=== PATIENT | female | born 1945 | race Caucasian/White ===

== ENCOUNTER 2018-06-17 05:49 | Inpatient (IN) | payer MEDICARE, OTHER ==
[2018-06-17 06:41] LABS: BASO % 0.1 % (0.0-1.0); EOS # 0.2 10^3/uL (0.0-0.50); EOS % 1.5 % (0.0-3.0); HEMATOCRIT 30.4 % (36.0-47.0); HEMOGLOBIN 9.3 g/dl (12.0-15.5); IMMATURE GRANULOCYTE % 0.8 % (0-3.0); LYMPH # 2.1 10^3/uL (1.5-4.5); LYMPH % 14.1 % (24.0-44.0); MEAN CORPUSCULAR HEMOGLOBIN 28.1 pg (27.0-33.0); MEAN CORPUSCULAR HGB CONC 30.6 g/dl (32.0-36.5); MEAN CORPUSCULAR VOLUME 91.8 fl (80.0-96.0); MONO % 6.7 % (0.0-5.0); NEUTROPHILS # 11.6 10^3/uL (1.8-7.7); NEUTROPHILS % 76.8 % (36.0-66.0); PLATELET COUNT, AUTOMATED 192 10^3/uL (150-450); RED BLOOD COUNT 3.31 10^6/uL (4.00-5.40); RED CELL DISTRIBUTION WIDTH 13.6 % (11.5-14.5); WHITE BLOOD COUNT 15.1 10^3/uL (4.0-10.0)
[2018-06-17 06:52] LABS: PROTHROMBIN TIME 13.3 SECONDS (12.1-14.4)
[2018-06-17] MEDS: NS 1,000 ML IV ×2 (07:05→10:09)
[2018-06-17] MEDS: ONDANSETRON 4MG/2ML VIAL (J2405) IV (07:15)
[2018-06-17] MEDS: PANTOPRAZOLE 40MG INJ (PROTONIX) (C9113) IV ×2 (07:15→18:52)
[2018-06-17 07:28] LABS: ALBUMIN 3.2 GM/DL (3.2-5.2); ALBUMIN/GLOBULIN RATIO 0.91 (1.00-1.93); ALKALINE PHOSPHATASE 67 U/L (45-117); ALT/SGPT 28 U/L (12-78); ANION GAP 8 MEQ/L (8-16); AST/SGOT 22 U/L (7-37); BILIRUBIN,DIRECT 0.1 MG/DL (0.0-0.2); BILIRUBIN,TOTAL 0.6 MG/DL (0.2-1.0); BLOOD UREA NITROGEN 57 MG/DL (7-18); CALCIUM LEVEL 8.5 MG/DL (8.8-10.2); CARBON DIOXIDE LEVEL 20 MEQ/L (21-32); CHLORIDE LEVEL 110 MEQ/L (98-107); CREATININE FOR GFR 1.07 MG/DL (0.55-1.30); GLOMERULAR FILTRATION RATE 53.8 (>39); GLUCOSE, FASTING 118 MG/DL (70-100); LIPASE 198 U/L (73-393); POTASSIUM SERUM 5.8 MEQ/L (3.5-5.1); SODIUM LEVEL 138 MEQ/L (136-145); TOTAL PROTEIN 6.7 GM/DL (6.4-8.2)
[2018-06-17] MEDS ORDERED: ISOVUE-370 76% 100ML VIAL (Q9967) As Ordered (08:32)
[2018-06-17] MEDS: GABAPENTIN 300 MG CAP PO ×3 (09:00→20:08)
[2018-06-17] MEDS ORDERED: ALBUTEROL SULFATE 2.5 MG/0.5 ML INH NEB SOLN INH (09:15)
[2018-06-17 10:54] LABS: IMMEDIATE SPIN CROSSMATCH 1 2
[2018-06-17] MEDS ORDERED: PROPOFOL 200 MG/20 ML VIAL As Ordered ×3 (13:17→14:03)
[2018-06-17] MEDS ORDERED: LIDOCAINE 2% INJ 100 MG/5 ML SDV (FOR ANES.) As Ordered (13:17)
[2018-06-17] MEDS ORDERED: fentaNYL 100 MCG/2 ML INJECTION (J3010) As Ordered (13:28)
[2018-06-17] MEDS ORDERED: EPINEPHrine 1MG/10ML SYRINGE 1.5IN As Ordered (13:51)
[2018-06-17] MEDS ORDERED: ONDANSETRON 4MG/2ML VIAL (J2405) As Ordered (14:08)
[2018-06-17] MEDS: FLUTICASONE HFA 220 MCG 12 GM INHALER (FLOVENT) INH ×2 (14:55→21:51)
[2018-06-17] MEDS: ALBUTEROL SULFATE 2.5 MG/0.5 ML INH NEB SOLN INH ×3 (14:56→20:00)
[2018-06-17 15:29] LABS: HEMATOCRIT 32.9 % (36.0-47.0); HEMOGLOBIN 10.5 g/dl (12.0-15.5); MEAN CORPUSCULAR HEMOGLOBIN 28.7 pg (27.0-33.0); MEAN CORPUSCULAR HGB CONC 31.9 g/dl (32.0-36.5); MEAN CORPUSCULAR VOLUME 89.9 fl (80.0-96.0); PLATELET COUNT, AUTOMATED 203 10^3/uL (150-450); RED BLOOD COUNT 3.66 10^6/uL (4.00-5.40); RED CELL DISTRIBUTION WIDTH 13.3 % (11.5-14.5); WHITE BLOOD COUNT 12.7 10^3/uL (4.0-10.0)
[2018-06-17] MEDS ORDERED: ONDANSETRON 4MG/2ML VIAL (J2405) IV (16:00)
[2018-06-17] MEDS ORDERED: traMADol 50 MG TAB PO (16:15)
[2018-06-17] MEDS: NS 0.45% 1,000 ML IV (17:13)
[2018-06-17] MEDS: ALLOPURINOL 300 MG TAB PO (20:08)
[2018-06-17] MEDS: ATORVASTATIN 20 MG TAB PO (20:08)
[2018-06-17] MEDS: MONTELUKAST 10 MG TAB PO (20:08)
[2018-06-17 21:44] LABS: HEMATOCRIT 29.8 % (36.0-47.0); HEMOGLOBIN 9.6 g/dl (12.0-15.5); MEAN CORPUSCULAR HEMOGLOBIN 28.7 pg (27.0-33.0); MEAN CORPUSCULAR HGB CONC 32.2 g/dl (32.0-36.5); PLATELET COUNT, AUTOMATED 167 10^3/uL (150-450); RED BLOOD COUNT 3.35 10^6/uL (4.00-5.40); RED CELL DISTRIBUTION WIDTH 13.8 % (11.5-14.5); WHITE BLOOD COUNT 15.5 10^3/uL (4.0-10.0)
[2018-06-18] MEDS: NS 0.45% 1,000 ML IV (01:00)
[2018-06-18 05:07] LABS: HEMATOCRIT 29.8 % (36.0-47.0); HEMOGLOBIN 9.3 g/dl (12.0-15.5); MEAN CORPUSCULAR HEMOGLOBIN 28.5 pg (27.0-33.0); MEAN CORPUSCULAR HGB CONC 31.2 g/dl (32.0-36.5); MEAN CORPUSCULAR VOLUME 91.4 fl (80.0-96.0); PLATELET COUNT, AUTOMATED 167 10^3/uL (150-450); RED BLOOD COUNT 3.26 10^6/uL (4.00-5.40); RED CELL DISTRIBUTION WIDTH 13.9 % (11.5-14.5)
[2018-06-18 05:31] LABS: ANION GAP 7 MEQ/L (8-16); BLOOD UREA NITROGEN 40 MG/DL (7-18); CALCIUM LEVEL 8.8 MG/DL (8.8-10.2); CARBON DIOXIDE LEVEL 20 MEQ/L (21-32); CHLORIDE LEVEL 114 MEQ/L (98-107); CREATININE FOR GFR 0.98 MG/DL (0.55-1.30); GLOMERULAR FILTRATION RATE 59.6 (>39); GLUCOSE, FASTING 105 MG/DL (70-100); POTASSIUM SERUM 4.8 MEQ/L (3.5-5.1); SODIUM LEVEL 141 MEQ/L (136-145)
[2018-06-18] MEDS: PANTOPRAZOLE 40MG INJ (PROTONIX) (C9113) IV ×2 (06:25→19:00)
[2018-06-18] MEDS: ALBUTEROL SULFATE 2.5 MG/0.5 ML INH NEB SOLN INH ×4 (07:49→20:00)
[2018-06-18] MEDS: FLUTICASONE HFA 220 MCG 12 GM INHALER (FLOVENT) INH ×2 (07:49→20:00)
[2018-06-18] MEDS: GABAPENTIN 300 MG CAP PO ×3 (08:41→20:29)
[2018-06-18] MEDS: ACETAMINOPHEN 500 MG TAB PO (19:48)
[2018-06-18] MEDS: MONTELUKAST 10 MG TAB PO (20:25)
[2018-06-18] MEDS: ATORVASTATIN 20 MG TAB PO (20:25)
[2018-06-18] MEDS: ALLOPURINOL 300 MG TAB PO ×3 (20:25→20:34)
[2018-06-19 06:51] LABS: HEMATOCRIT 27.7 % (36.0-47.0); HEMOGLOBIN 8.6 g/dl (12.0-15.5); MEAN CORPUSCULAR HEMOGLOBIN 28.6 pg (27.0-33.0); PLATELET COUNT, AUTOMATED 167 10^3/uL (150-450); RED BLOOD COUNT 3.01 10^6/uL (4.00-5.40); RED CELL DISTRIBUTION WIDTH 14.3 % (11.5-14.5); WHITE BLOOD COUNT 9.7 10^3/uL (4.0-10.0)
[2018-06-19 07:10] LABS: ANION GAP 7 MEQ/L (8-16); BLOOD UREA NITROGEN 30 MG/DL (7-18); CALCIUM LEVEL 8.3 MG/DL (8.8-10.2); CARBON DIOXIDE LEVEL 23 MEQ/L (21-32); CHLORIDE LEVEL 113 MEQ/L (98-107); CREATININE FOR GFR 0.92 MG/DL (0.55-1.30); GLOMERULAR FILTRATION RATE > 60.0 (>39); GLUCOSE, FASTING 115 MG/DL (70-100); POTASSIUM SERUM 4.8 MEQ/L (3.5-5.1); SODIUM LEVEL 143 MEQ/L (136-145)
[2018-06-19] MEDS: FLUTICASONE HFA 220 MCG 12 GM INHALER (FLOVENT) INH ×2 (07:42→20:00)
[2018-06-19] MEDS: ALBUTEROL SULFATE 2.5 MG/0.5 ML INH NEB SOLN INH ×4 (07:42→20:00)
[2018-06-19] MEDS: GABAPENTIN 300 MG CAP PO ×3 (09:08→20:50)
[2018-06-19] MEDS: PANTOPRAZOLE 40MG TAB (PROTONIX) PO ×2 (09:08→20:51)
[2018-06-19] MEDS: INFLUENZA VIRUS VACCINE HIGH DOSE 0.5 ML SYRINGE (90662) IM (09:11)
[2018-06-19] MEDS: ALLOPURINOL 300 MG TAB PO (20:50)
[2018-06-19] MEDS: MONTELUKAST 10 MG TAB PO (20:51)
[2018-06-19] MEDS: ATORVASTATIN 20 MG TAB PO (20:51)
[2018-06-20 06:54] LABS: HEMATOCRIT 28.2 % (36.0-47.0); HEMOGLOBIN 8.8 g/dl (12.0-15.5); MEAN CORPUSCULAR HEMOGLOBIN 28.8 pg (27.0-33.0); MEAN CORPUSCULAR HGB CONC 31.2 g/dl (32.0-36.5); MEAN CORPUSCULAR VOLUME 92.2 fl (80.0-96.0); PLATELET COUNT, AUTOMATED 179 10^3/uL (150-450); RED BLOOD COUNT 3.06 10^6/uL (4.00-5.40); RED CELL DISTRIBUTION WIDTH 14.4 % (11.5-14.5); WHITE BLOOD COUNT 10.4 10^3/uL (4.0-10.0)
[2018-06-20 07:09] LABS: ANION GAP 8 MEQ/L (8-16); BLOOD UREA NITROGEN 22 MG/DL (7-18); CALCIUM LEVEL 8.3 MG/DL (8.8-10.2); CARBON DIOXIDE LEVEL 24 MEQ/L (21-32); CHLORIDE LEVEL 109 MEQ/L (98-107); CREATININE FOR GFR 0.83 MG/DL (0.55-1.30); GLOMERULAR FILTRATION RATE > 60.0 (>39); GLUCOSE, FASTING 117 MG/DL (70-100); POTASSIUM SERUM 4.6 MEQ/L (3.5-5.1); SODIUM LEVEL 141 MEQ/L (136-145)
[2018-06-20] MEDS: ALBUTEROL SULFATE 2.5 MG/0.5 ML INH NEB SOLN INH ×4 (08:00→20:00)
[2018-06-20] MEDS: FLUTICASONE HFA 220 MCG 12 GM INHALER (FLOVENT) INH ×2 (08:00→20:00)
[2018-06-20] MEDS: PANTOPRAZOLE 40MG TAB (PROTONIX) PO ×2 (08:22→21:36)
[2018-06-20] MEDS: GABAPENTIN 300 MG CAP PO ×3 (08:22→21:36)
[2018-06-20 10:09] LABS: IMMEDIATE SPIN CROSSMATCH 1 1
[2018-06-20 15:28] LABS: HEMATOCRIT 31.9 % (36.0-47.0); HEMOGLOBIN 10.2 g/dl (12.0-15.5)
[2018-06-20] MEDS: ALLOPURINOL 300 MG TAB PO (21:00)
[2018-06-20] MEDS: ATORVASTATIN 20 MG TAB PO (21:36)
[2018-06-20] MEDS: MONTELUKAST 10 MG TAB PO (21:36)
[2018-06-21] MEDS: LISINOPRIL 20 MG TAB PO (06:29)
[2018-06-21] MEDS: ATENOLOL 50 MG TAB PO (06:35)
[2018-06-21 06:45] LABS: HEMATOCRIT 32.4 % (36.0-47.0); HEMOGLOBIN 10.3 g/dl (12.0-15.5); MEAN CORPUSCULAR HEMOGLOBIN 28.7 pg (27.0-33.0); MEAN CORPUSCULAR HGB CONC 31.8 g/dl (32.0-36.5); MEAN CORPUSCULAR VOLUME 90.3 fl (80.0-96.0); PLATELET COUNT, AUTOMATED 201 10^3/uL (150-450); RED BLOOD COUNT 3.59 10^6/uL (4.00-5.40); RED CELL DISTRIBUTION WIDTH 14.4 % (11.5-14.5); WHITE BLOOD COUNT 11.8 10^3/uL (4.0-10.0)
[2018-06-21 07:05] LABS: ANION GAP 9 MEQ/L (8-16); BLOOD UREA NITROGEN 16 MG/DL (7-18); CALCIUM LEVEL 8.8 MG/DL (8.8-10.2); CARBON DIOXIDE LEVEL 25 MEQ/L (21-32); CHLORIDE LEVEL 108 MEQ/L (98-107); CREATININE FOR GFR 0.85 MG/DL (0.55-1.30); GLOMERULAR FILTRATION RATE > 60.0 (>39); GLUCOSE, FASTING 112 MG/DL (70-100); POTASSIUM SERUM 4.3 MEQ/L (3.5-5.1); SODIUM LEVEL 142 MEQ/L (136-145)
[2018-06-21] MEDS: ALBUTEROL SULFATE 2.5 MG/0.5 ML INH NEB SOLN INH ×2 (07:31→11:16)
[2018-06-21] MEDS: FLUTICASONE HFA 220 MCG 12 GM INHALER (FLOVENT) INH (07:32)
[2018-06-21] MEDS: PANTOPRAZOLE 40MG TAB (PROTONIX) PO (08:33)
[2018-06-21] MEDS: GABAPENTIN 300 MG CAP PO (08:33)
== END 2018-06-21 10:50 | disposition home or self-care (01) | DRG 378 ==
LOC: M MS5PR 06-18 14:27 → M ED 05:49 → M ED INP 09:15 → M ICU 15:40
PROC: 0W3P8ZZ Control Bleeding in Gastrointestinal Tract, Via Natural or Artificial Opening Endoscopic (ICD-10-PCS; principal; 2018-06-17 12:42)
PROC: 30233N1 Transfusion of Nonautologous Red Blood Cells into Peripheral Vein, Percutaneous Approach (ICD-10-PCS; 2018-06-17 13:20)
DX: K26.4 Chronic or unspecified duodenal ulcer with hemorrhage (principal); D62 Acute posthemorrhagic anemia; Z68.41 Body mass index [BMI] 40.0-44.9, adult; I11.9 Hypertensive heart disease without heart failure; E66.9 Obesity, unspecified; Z79.899 Other long term (current) drug therapy; Z88.6 Allergy status to analgesic agent; M10.9 Gout, unspecified; E78.5 Hyperlipidemia, unspecified; I73.9 Peripheral vascular disease, unspecified; J45.909 Unspecified asthma, uncomplicated; F32.9 Major depressive disorder, single episode, unspecified; M79.7 Fibromyalgia; Z87.891 Personal history of nicotine dependence

== ENCOUNTER 2018-12-05 18:42 | Inpatient (IN) | payer MEDICARE, OTHER ==
[~2018-12-05] VITALS: Ht 167.6 cm; Wt 116.6 kg
[~2018-12-05 18:42] MED LIST: ALLO10TA PO; ATEN50TA2 PO; ATOR40TA75 PO; COQ1200C3 PO; FLUT22IN INH; FURO20TA2 PO; GABA-843 PO; LISI-538 PO; MAGN1CAP PO; MELO15TA28 PO; OMEG10002 PO; PROAAER10 INH; PROT1TAB2 PO; PROZ20CA11 PO; SING10TA32 PO; ZYLO300T6 PO
[2018-12-05] MEDS ORDERED: FUROSEMIDE 100 MG/10 ML VIAL (J1940) IV ONE (19:30)
[2018-12-05] MEDS ORDERED: dexameTHASONE 20 MG/5 ML VIAL (J1100) IV ONE (19:30)
[2018-12-05] MEDS ORDERED: IPRATROPIUM 0.5MG/ALBUTEROL 2.5MG INH SOL UD 3ML (DUONEB)(J7620) NEB ONE (19:30)
[2018-12-05 19:48] LABS: BASO % 0.2 % (0.0-1.0); EOS # 0.4 10^3/uL (0.0-0.50); EOS % 2.7 % (0.0-3.0); HEMATOCRIT 42.1 % (36.0-47.0); HEMOGLOBIN 12.7 g/dl (12.0-15.5); LYMPH # 2.8 10^3/uL (1.5-4.5); LYMPH % 17.2 % (24.0-44.0); MEAN CORPUSCULAR HEMOGLOBIN 26.2 pg (27.0-33.0); MEAN CORPUSCULAR HGB CONC 30.2 g/dl (32.0-36.5); MEAN CORPUSCULAR VOLUME 86.8 fl (80.0-96.0); MONO # 1.1 10^3/uL (0.0-0.8); MONO % 6.6 % (0.0-5.0); NEUTROPHILS # 11.9 10^3/uL (1.8-7.7); NEUTROPHILS % 72.6 % (36.0-66.0); PLATELET COUNT, AUTOMATED 266 10^3/uL (150-450); RED BLOOD COUNT 4.85 10^6/uL (4.00-5.40); WHITE BLOOD COUNT 16.5 10^3/uL (4.0-10.0)
[2018-12-05 20:02] LABS: INR 0.98; PROTHROMBIN TIME 13.1 SECONDS (12.1-14.4)
[2018-12-05 20:03] LABS: PARTIAL THROMBOPLASTIN TIME 40.4 SECONDS (25.4-37.6)
--- NOTE | 2018-12-05 20:13 | REP ---
Clinical: Chest pain. Technique: Portable AP upright view. Comparison: 06/17/2018. Findings: Mediastinum and cardiac silhouette are relatively stable although mild cardiomegaly cannot be excluded. Gibbs demonstrate chronic-appearing interstitial changes. No focal consolidation, effusion, or pneumothorax. Skeletal structures intact. Impression: Mild cardiomegaly and chronic appearing changes. No focal consolidation. Electronically Signed by Dean Wyman MD 12/05/2018 08:04 P
--- NOTE | 2018-12-05 20:16 | ECGEPIP ---
Stationary ECG Study [facility] - ED Test Date: 2018-12-05 Pat Name: CORNELIUS MASON Department: Room: - Gender: F Coding Director: ct : 1945 Requested By: Mariella Fishman Order Number: [id number] Reading MD: Mariella Fishman Measurements Intervals [place] Rate: 74 P: 51 OR: 165 QRS: 55 QRSD: 89 T: 15 QT: 400 QTc: 444 Interpretive Statements SINUS RHYTHM NSTTW ABNORMALITY SIMILAR 06/17/18 Electronically Signed On 12-05-2018 20:16:10 EST by Mariella Fishman
[2018-12-05 20:24] LABS: ALBUMIN 3.3 GM/DL (3.2-5.2); ALT/SGPT 29 U/L (12-78); BILIRUBIN,DIRECT 0.1 MG/DL (0.0-0.2); BILIRUBIN,TOTAL 0.5 MG/DL (0.2-1.0); BLOOD UREA NITROGEN 28 MG/DL (7-18); CARBON DIOXIDE LEVEL 22 MEQ/L (21-32); CHLORIDE LEVEL 108 MEQ/L (98-107); CPK CREATINE PHOSPHOKINASE 54 U/L (26-192); CREATININE FOR GFR 0.95 MG/DL (0.55-1.30); FREE T4 1.45 NG/DL (0.76-1.46); GLOMERULAR FILTRATION RATE > 60.0 (>39); GLUCOSE, FASTING 137 MG/DL (70-100); LIPASE 275 U/L (73-393); MB/CK RELATIVE INDEX 3.15 (< OR =4); NT-PRO BNP 1188 PG/ML (<125); POTASSIUM SERUM 4.4 MEQ/L (3.5-5.1); SODIUM LEVEL 140 MEQ/L (136-145); TOTAL PROTEIN 7.2 GM/DL (6.4-8.2); TROPONIN I < 0.02 NG/ML (< 0.10)
[2018-12-05] MEDS: OMEGA-3 1000MG CAPSULE PO SCH (21:00)
[2018-12-05] MEDS: CO-ENZYME Q10 50 MG CAP PO SCH (21:00)
[2018-12-05] MEDS: PANTOPRAZOLE 20 MG TAB PO SCH (21:00)
[2018-12-05 21:36] LABS: ABG BASE EXCESS -4.4 (-2.0-2.0); ABG HCO3 19.2 MEQ/L (22.0-26.0); ABG O2 SATURATION 96.5 % (95.0-99.0); ABG PARTIAL PRESSURE CO2 31.2 mmHg (35.0-45.0); ABG PARTIAL PRESSURE O2 87.9 mmHg (75.0-100.0); ABG STANDARD HCO3 20.9 MEQ/L (22.0-26.0); ABG TOTAL CO2 20.2 MEQ/L (23.0-31.0); ABG pH (ARTERIAL) 7.407 UNITS (7.350-7.450)
[2018-12-05] MEDS ORDERED: ISOVUE-370 76% 100ML VIAL (Q9967) As Ordered ONE (22:15)
--- NOTE | 2018-12-05 22:57 | REPVR ---
EXAM: CT Angiography Chest With Contrast EXAM DATE/TIME: 12/05/2018 10:22 PM CLINICAL HISTORY: 73 years old, female; Pain; Chest pain; Additional info: Dysp TECHNIQUE: Axial computed tomographic angiography images of the chest with intravenous contrast using CT angiography protocol. All CT scans at this facility use at least one of these dose optimization techniques: automated exposure control; mA and/or kV adjustment per patient size (includes targeted exams where dose is matched to clinical indication); or iterative reconstruction. Coronal and sagittal reformatted images were created and reviewed. MIP reconstructed images were created and reviewed. CONTRAST: Contrast Material: 75 ml of ISO 370; Contrast Route: IV COMPARISON: CR PORTABLE CHEST X-RAY 12/05/2018 7:45 PM FINDINGS: Pulmonary arteries: There is opacification of the pulmonary arteries with no evidence of pulmonary embolus. Aorta: There is opacification of the aorta which appears intact. Lungs: There is interstitial density throughout the lungs some of which may be congestive failure and pulmonary edema. There may also be interstitial pneumonic infiltrates. Acute or chronic interstitial lung disease is a consideration as well. Pleural space: No evidence of pneumothorax and no pleural effusion. Heart: There is moderate cardiomegaly. There is no pericardial effusion. There is a focal 3 CM rounded area of thickening of the myocardium posterior left ventricle and recommend correlation with an echo to exclude any possibility of pathology. Lymph nodes: There are 2 lymph nodes along the right side of the trachea measuring 2 CM by 1 CM each. There is a 3 CM by 2 CM conglomerates of lymph nodes in the subcarinal location. Bones/joints: Unremarkable. No acute fracture. Soft tissues: Unremarkable. IMPRESSION: 1. 3 cm focal oval area of thickening posterior aspect of the left ventricular myocardium. I would recommend correlation with an echo to evaluate for pathology. 2. Moderate cardiomegaly. 3. No evidence of pulmonary embolus. 4. Moderate congestive failure and interstitial edema. 5. Possible interstitial infiltrate as well or interstitial lung disease. Electronically signed by: Dimitri Schmidt On 12/05/2018 22:56:58 PM
[2018-12-05] MEDS ORDERED: PROT20TA11 PO (23:01)
[2018-12-05] MEDS ORDERED: COQ1200C3 PO (23:01)
[2018-12-05] MEDS ORDERED: FLUO20CA8 PO (23:03)
[2018-12-05] MEDS ORDERED: NORC1TAB7 PO (23:06)
[2018-12-05] MEDS ORDERED: ALBU83IN INH (23:06)
[2018-12-05] MEDS ORDERED: GLUCAGON FOR INJ 1 MG VIAL (J1610) SC PRN (23:15)
[2018-12-05] MEDS ORDERED: ALLOPURINOL 300 MG TAB PO PRN (23:15)
[2018-12-05] MEDS ORDERED: GLUCOSE 4 GM CHEW TABLET PO PRN (23:15)
[2018-12-05] MEDS ORDERED: DEXTROSE 50% 50 ML SYRINGE IV PRN (23:15)
[2018-12-05] MEDS ORDERED: ALBUTEROL SULFATE 2.5 MG/0.5 ML INH NEB SOLN NEB PRN (23:15)
[2018-12-05] MEDS ORDERED: CALCIUM GLUCONATE 1,000 MG in D5W MINI-BAG PLUS 100 ML IV ONE (23:30)
[2018-12-05] MEDS ORDERED: NORCO, ANEXSIA 5/325MG TABLET (HYDROcodone/ACETAMINOPHEN) PO PRN (23:30)
[2018-12-06] VITALS (18 sets, daily range): BP systolic 122–151; BP diastolic 60–72; O2SAT 91–96
[2018-12-06] MEDS: ATORVASTATIN 20 MG TAB PO SCH ×2 (00:45→20:12)
[2018-12-06] MEDS: LISINOPRIL 20 MG TAB PO SCH ×3 (00:46→20:12)
[2018-12-06] MEDS: GABAPENTIN 300 MG CAP PO SCH ×3 (00:46→20:13)
[2018-12-06] MEDS: MONTELUKAST 10 MG TAB PO SCH ×2 (00:47→20:13)
[2018-12-06] MEDS: FLUoxetine 20 MG CAP PO SCH ×3 (00:47→20:12)
[2018-12-06] MEDS: ATENOLOL 50 MG TAB PO SCH ×3 (00:47→20:13)
[2018-12-06] MEDS: AZITHROMYCIN INJ 500 MG, VIAL MATE ADAPTER 1 EACH in D5W 250 ML IV SCH (03:10)
[2018-12-06] MEDS: methylPREDNISolone INJ 125 MG/2 ML VIAL (J2930) IV SCH ×2 (06:02→15:27)
[2018-12-06] MEDS: HEPARIN SOD (PORCINE) 5000 UNITS/ML VIAL SC SCH ×3 (06:02→22:10)
[2018-12-06] MEDS: cefTRIAXone SOD 1 GM in D5W MINI-BAG PLUS 50 ML IV SCH (06:03)
[2018-12-06 07:36] LABS: HEMATOCRIT 42.4 % (36.0-47.0); HEMOGLOBIN 13.1 g/dl (12.0-15.5); MEAN CORPUSCULAR HEMOGLOBIN 26.5 pg (27.0-33.0); MEAN CORPUSCULAR HGB CONC 30.9 g/dl (32.0-36.5); MEAN CORPUSCULAR VOLUME 85.7 fl (80.0-96.0); PLATELET COUNT, AUTOMATED 283 10^3/uL (150-450); RED BLOOD COUNT 4.95 10^6/uL (4.00-5.40); WHITE BLOOD COUNT 19.2 10^3/uL (4.0-10.0)
[2018-12-06 07:49] LABS: BLOOD UREA NITROGEN 30 MG/DL (7-18); CALCIUM LEVEL 9.1 MG/DL (8.8-10.2); CARBON DIOXIDE LEVEL 21 MEQ/L (21-32); CHLORIDE LEVEL 103 MEQ/L (98-107); CREATININE FOR GFR 1.19 MG/DL (0.55-1.30); GLOMERULAR FILTRATION RATE 47.5 (>39); GLUCOSE, FASTING 240 MG/DL (70-100); POTASSIUM SERUM 4.8 MEQ/L (3.5-5.1); SODIUM LEVEL 135 MEQ/L (136-145); TROPONIN I < 0.02 NG/ML (< 0.10)
[2018-12-06] MEDS: IPRATROPIUM 0.5MG/ALBUTEROL 2.5MG INH SOL UD 3ML (DUONEB)(J7620) NEB SCH ×4 (08:00→20:24)
[2018-12-06] MEDS: FLUTICASONE HFA 220 MCG 12 GM INHALER (FLOVENT) INH SCH ×3 (08:07→20:24)
[2018-12-06] MEDS: HumaLOG INSULIN (NovoLOG) PER UNIT SC SCH ×4 (10:01→16:50)
[2018-12-06] MEDS: FUROSEMIDE 40 MG/4 ML VIAL (J1940) IV SCH ×2 (10:01→18:35)
[2018-12-06] MEDS: CO-ENZYME Q10 50 MG CAP PO SCH ×2 (10:02→20:11)
[2018-12-06] MEDS: OMEGA-3 1000MG CAPSULE PO SCH ×2 (10:02→20:12)
[2018-12-06] MEDS: PANTOPRAZOLE 20 MG TAB PO SCH ×2 (10:05→20:14)
--- NOTE | 2018-12-06 11:41 | HPE ---
DATE OF ADMISSION: 12/05/2018 CHIEF COMPLAINT: Cough, shortness of breath over the past several weeks. HISTORY OF PRESENT ILLNESS: The patient is a 73-year-old female. She has a significant past medical history of gastrointestinal (GI) bleed secondary to peptic ulcer disease, gout, hyperlipidemia, hypertension, asthma, depression, questionable coronary disease (CAD) with a normal stress test in the past. She was suppose to see Dr. Cabrales for cardiac catheter but was not able to do so due to insurance issues. She has inferior ischemic on a nuclear stress test. It is unclear if this was breast tissue, an actual area of reversible ischemia. She also has diastolic congestive heart failure (CHF). She presents to the emergency room with worsening dyspnea on exertion for the past several weeks, decreased exercise tolerance. She is only able to walk a few feet now before she is short of breath, some chest burning. Cough is productive of sputum. She denies fevers or chills. Denies abdominal pain, constipation, diarrhea or urinary symptoms. PAST MEDICAL HISTORY: See history of present illness. PAST SURGICAL HISTORY: Carpal tunnel syndrome surgery. Hysterectomy. She has had trigger finger release. She has had a tummy tuck. Hemorrhoidectomy. Tonsillectomy. Right foot surgery. Left knee surgery. HOME MEDICATIONS: - albuterol - Lasix - allopurinol - atenolol - Lipitor - Coenzyme Q - Prozac - fluticasone - gabapentin - lisinopril - Singulair - Protonix ALLERGIES: IBUPROFEN, SULFA ANTIBIOTICS. SOCIAL HISTORY: Former smoker. Denies alcohol or elicit drug use. FAMILY HISTORY: Hypertension and heart disease. REVIEW OF SYSTEMS: 12 point review of systems was completed all of which were negative except those listed in history of present illness. VITAL SIGNS ON ADMISSION: Temperature 98.7, pulse 74, respirations 28, sating at 84% on room air, blood pressure 192/79. PHYSICAL EXAMINATION: General: She is well nourished, in no apparent distress. Head: Normocephalic, atraumatic. Eyes: Extraocular movements are intact. Pupils equal, round, and reactive to light. Neck is supple. No jugular venous pulse. Lungs: She has bibasilar crackles, mild wheezing. Cardiovascular: Regular rate and rhythm. Normal S1, S2. No murmurs, gallops or rubs. Abdomen is soft, nontender, nondistended, positive bowel sounds. No rebound or guarding. Extremities: Trace pitting edema. No calf tenderness. Skin: Intact. No rashes, lesions or breakdown. Neurological exam: Alert and oriented times three. No focal deficit appreciated on exam. LABS AND IMAGING COMPLETED IN THE EMERGENCY ROOM: White count 16.5, hemoglobin and hematocrit 12/42, platelets of 266. Coags within normal limits. Blood gas 7.4, 31, 87, 20, 96. Chemistry shows a BUN and creatinine of 28/0.9, lactate within normal limits. Troponin negative. BNP 1188. IMAGING: CT angio of the chest shows 3 cm focal ovoid area of thickening posterior aspect of the left ventricle and myocardium. Moderate cardiomegaly. No evidence of pulmonary embolus. Moderate congestive heart failure and interstitial edema. Possibly interstitial infiltrate as well as/or interstitial lung disease. ASSESSMENT AND PLAN: Acute respiratory failure with hypoxia, multifactorial, possible asthma exacerbation secondary to underlying pneumonia as well as congestive heart failure (CHF) exacerbation. For asthma exacerbation, the patient does not know her baseline peak flow. Once daily peak flow. Solu-Medrol 40 every 8 hours. Insulin sliding scale while on Solu-Medrol with a history of prediabetes. She has underlying pneumonia so we will do Rocephin and Zithromax. Sputum culture, Legionella, urine pneumococcal antigen. Oxygen as needed to maintain oxygen saturation greater than 94%. For possible congestive heart failure exacerbation, strict input and output, daily weights, elevate the head of the bed. Lasix 40 twice daily. Rule out ACS with serial troponins, serial EKGs. Will get an echo. Will also evaluate her left ventricular opacity. Unclear this may also be artifact. For the rest of her chronic medical conditions, hyperlipidemia, continue statin. History of peptic ulcer disease. Continue Protonix. Hypertension, continue lisinopril. Neuropathy, continue gabapentin. Mood disorder, continue Prozac. Allopurinol, continue with that. For fibromyalgia, continue with [place]. Supportive deep venous thrombosis (DVT) prophylaxis. Heparin subcutaneous. GI prophylaxis on Prilosec. Diet: Cardiac. Fluid restriction.
--- NOTE | 2018-12-06 14:34 | ECGEPIP ---
Stationary ECG Study [facility] Test Date: 2018-12-06 Pat Name: CORNELIUS MASON Department: Room: [place] [address] Gender: F Finisher Brush: BAKARI : 1945 Requested By: ZACH THURSDAY Order Number: [id number] Reading MD: Dany Jacobsen Measurements Intervals [place] Rate: 51 P: 4 ME: 171 QRS: 37 QRSD: 96 T: -2 QT: 483 QTc: 449 Interpretive Statements SINUS BRADYCARDIA Rate decreased and T wave abnormality increased when compared to tracing done Electronically Signed On 12-06-2018 14:34:05 EST by Dany Jacobsen
--- NOTE | 2018-12-06 17:37 | IPNPDOC ---
Text Note Date of Service The patient was seen on 12/06/18. NOTE Subjective: Patient is a 73-year-old female with a PMHx of CAD (Hx of Inferior ischemia on nuclear stress test), Diastolic CHF, HTN, DLP, Asthma, GI bleed 2/2 PUD, Gout, Depression who presented to the ER with complaints of shortness of breath over the last several weeks. Patient also noted associated cough. Of note, patient has stopped using diuretics are the past 5 days because she has reported that it makes her feel weaker. Patient was seen and examined at the bedside. Currently patient has noted that her breathing is improved. Denies any chest pain or palpitations. Denies any nausea, vomiting, abdominal pain, constipation, diarrhea or discomfort with urination. Objective: Vitals (See below) General: Lying in bed, no acute distress, comfortable, AAOx3 HEENT: NC, AT CVS: RRR, +S1S2 Lungs: Fair air entry b/l, crackles on lung bases without any evidence of wheezing or rhonchi Abdomen: Soft, ND, NT Extremities: - Edema, - Calf tenderness Assessment and plan: Acute hypoxic respiratory failure - possibly 2/2 fluid overload, possibly 2/2 community acquired pneumonia, possibly 2/2 Asthma - Presented to the ER with complaints of shortness of breath associated with cough - Physical reveals bilateral crackles on lung bases - Remains afebrile and hemodynamically stable - Leukocytosis; likely confounded by corticosteroid use - c/w Furosemide 40 IV BID - c/w Solumedrol; will taper dose - c/w Ceftriaxone and Azithromycin (Day #2) Hx of Pre-DM - Patient has re refused insulin; and is indicated that it will "kill her" CAD - Hx of Inferior ischemia on nuclear stress test - Currently patient has no complaints of chest pain or palpitations - EKG 3/3: Sinus bradycardia with T-wave abnormalities noted - Troponin x3 negative - Will have outpatient follow-up with Dr. Aguiar HTN - BP well controlled - c/w Lisinopril, Atenolol, DLP - c/w [place] 3 fatty acids, Coenzyme Q10, Atorvastatin Asthma - see above - c/w Montelukast - c/w inhaled therapy as ordered GI bleed 2/2 PUD - Hg appears to be higher than baseline - Will continue to monitor - c/w Protonix Gout - c/w Allopurinol Depression - c/w Fluoxetine Neuropathy - c/w Gabapentin Patient education - Patient is of poor understanding of her medical conditions - Reiterated to patient the need for medications and compliance - Will reattempt again tomorrow DVT prophylaxis - c/w Heparin VS,Fishbone, I+O VS, Fishbone, I+O Laboratory Tests 12/05/18 19:33 Red Blood Count 4.85, Mean Corpuscular Volume 86.8, Mean Corpuscular Hemoglobin 26.2 L, Mean Corpuscular Hemoglobin Concent 30.2 L, Red Cell Distribution Width 15.2 H, Neutrophils (%) (Auto) 72.6 H, Lymphocytes (%) (Auto) 17.2 L, Monocytes (%) (Auto) 6.6 H, Eosinophils (%) (Auto) 2.7, Basophils (%) (Auto) 0.2, Neutro phils # (Auto) 11.9 H, Lymphocytes # (Auto) 2.8, Monocytes # (Auto) 1.1 H, Eosinophils # (Auto) 0.4, Basophils # (Auto) 0.0 12/06/18 07:20 Red Blood Count 4.95, Mean Corpuscular Volume 85.7, Mean Corpuscular Hemoglobin 26.5 L, Mean Corpuscular Hemoglobin Concent 30.9 L, Red Cell Distribution Width 15.1 H, Calcium Level 9.1 Vital Signs Date Time Temp Pulse Resp B/P (MAP) Pulse Ox O2 Delivery O2 Flow Rate FiO2 12/06/18 12:00 98.2 64 20 133/60 (84) 95 2.0 12/05/18 20:09 Nasal Cannula I&O- Last 24 Hours up to 6 AM 12/06/18 05:59 Intake Total 360 ml Output Total 1500 ml Balance -1140 ml TEE SCHMITZ MD Dec 06, 2018 17:37
[2018-12-07] VITALS (9 sets, daily range): BP systolic 128–148; BP diastolic 60–75; O2SAT 95–97
[2018-12-07] MEDS: AZITHROMYCIN INJ 500 MG, VIAL MATE ADAPTER 1 EACH in D5W 250 ML IV SCH ×3
[2018-12-07] MEDS: IPRATROPIUM 0.5MG/ALBUTEROL 2.5MG INH SOL UD 3ML (DUONEB)(J7620) NEB SCH ×4 (00:37→11:24)
[2018-12-07] MEDS: cefTRIAXone SOD 1 GM in D5W MINI-BAG PLUS 50 ML IV SCH (01:00)
[2018-12-07] MEDS ORDERED: methylPREDNISolone INJ 40 MG/1 ML VIAL (J2920) IV SCH (02:00)
[2018-12-07 04:56] LABS: HEMATOCRIT 38.7 % (36.0-47.0); HEMOGLOBIN 12.2 g/dl (12.0-15.5); MEAN CORPUSCULAR HEMOGLOBIN 26.4 pg (27.0-33.0); MEAN CORPUSCULAR HGB CONC 31.5 g/dl (32.0-36.5); MEAN CORPUSCULAR VOLUME 83.8 fl (80.0-96.0); PLATELET COUNT, AUTOMATED 297 10^3/uL (150-450); RED BLOOD COUNT 4.62 10^6/uL (4.00-5.40)
[2018-12-07 05:14] LABS: CALCIUM LEVEL 8.2 MG/DL (8.8-10.2); CREATININE FOR GFR 1.44 MG/DL (0.55-1.30); GLOMERULAR FILTRATION RATE 38.1 (>39); POTASSIUM SERUM 4.4 MEQ/L (3.5-5.1)
[2018-12-07 05:17] LABS: WHITE BLOOD COUNT 31.6 10^3/uL (4.0-10.0)
[2018-12-07] MEDS: HEPARIN SOD (PORCINE) 5000 UNITS/ML VIAL SC SCH (06:30)
[2018-12-07] MEDS: FLUTICASONE HFA 220 MCG 12 GM INHALER (FLOVENT) INH SCH (07:29)
[2018-12-07 08:08] LABS: BASO # 0.1 10^3/uL (0.0-0.2); BASO % 0.2 % (0.0-1.0); LYMPH # 2.4 10^3/uL (1.5-4.5); LYMPH % 7.4 % (24.0-44.0); MONO # 1.5 10^3/uL (0.0-0.8); MONO % 4.7 % (0.0-5.0); NEUTROPHILS % 86.3 % (36.0-66.0)
[2018-12-07 08:31] LABS: NEUTROPHILS # 27.7 10^3/uL (1.8-7.7)
[2018-12-07] MEDS: PANTOPRAZOLE 20 MG TAB PO SCH ×2 (09:00→09:28)
[2018-12-07] MEDS ORDERED: predniSONE 20 MG TAB PO SCH (09:00)
[2018-12-07] MEDS: FLUoxetine 20 MG CAP PO SCH (09:27)
[2018-12-07] MEDS: GABAPENTIN 300 MG CAP PO SCH (09:27)
[2018-12-07] MEDS: ATENOLOL 50 MG TAB PO SCH (09:27)
[2018-12-07] MEDS: OMEGA-3 1000MG CAPSULE PO SCH (09:27)
[2018-12-07] MEDS: CO-ENZYME Q10 50 MG CAP PO SCH (09:27)
[2018-12-07] MEDS: LISINOPRIL 20 MG TAB PO SCH (09:28)
[2018-12-07] MEDS ORDERED: AZIT-12 PO (10:28)
[2018-12-07] MEDS ORDERED: CEFD300CAP PO (10:28)
[2018-12-07] MEDS ORDERED: PRED10TA2 PO (10:28)
[2018-12-07] MEDS ORDERED: AZITHROMYCIN 250 MG TAB PO SCH (12:00)
--- NOTE | 2018-12-07 13:04 | DS.PDOC ---
Discharge Summary General Date of Admission Dec 05, 2018 at 22:57 Date of Discharge 12/07/2018 Discharge Summary PROCEDURES PERFORMED DURING STAY: [None]. ADMITTING DIAGNOSES / DISCHARGE DIAGNOSES: Acute hypoxic respiratory failure - possibly 2/2 fluid overload, possibly 2/2 community acquired pneumonia, possibly 2/2 Asthma Profound leukocytosis - likely 2/2 reactive etiology - likely 2/2 corticosteroids; less likely 2/2 infectious etiology Elevation of Cr - likely 2/2 pre-renal etiology - likely 2/2 diuresis Hx of Pre-DM CAD HTN DLP Asthma GI bleed 2/2 PUD Gout Depression Neuropathy Hx of Non-compliance / Poor medical understanding DVT prophylaxis COMPLICATIONS/CHIEF COMPLAINT: Shortness of breath HISTORY OF PRESENT ILLNESS: Patient is a 73-year-old female with a PMHx of CAD (Hx of Inferior ischemia on nuclear stress test), Diastolic CHF, HTN, DLP, Asthma, GI bleed 2/2 PUD, Gout, Depression who presented to the ER with complaints of shortness of breath over the last several weeks. Patient also noted associated cough. Of note, patient has stopped using diuretics are the past 5 days because she has reported that it makes her feel weaker. HOSPITAL COURSE: Acute hypoxic respiratory failure - possibly 2/2 fluid overload, possibly 2/2 community acquired pneumonia, possibly 2/2 Asthma - Patient is indicated that her breathing is doing much better - Physical does not reveal any crackles at bases any further - Remains afebrile and hemodynamically stable - Increased leukocytosis; likely confounded by corticosteroid use - s/p Furosemide 40 IV BID - Will Start Prednisone; Will DC Solumedrol - Will Start Cefdinir and Azithromycin; Will DC Ceftriaxone and Azithromycin (Antibiotic day #3); antibiotics have been sent to her pharmacy - Patient has not yet cleared physical therapy but is adamant that she will be going home - Patient will be leaving AGAINST MEDICAL ADVICE; patient is aware of the risks including worsening of her medical condition disability and/or - The benefits of staying include monitoring of her medical condition and continuation of physical therapy to ensure stability Profound leukocytosis - likely 2/2 reactive etiology - likely 2/2 cortico steroids; less likely 2/2 infectious etiology - Review systems is negative for any additional source of infection - Remains hemodynamically stable and afebrile - Will continue with antibiotics as stated above Elevation of Cr - likely 2/2 pre-renal etiology - likely 2/2 diuresis - Continues to make urine - Will discontinue IV diuretics Hx of Pre-DM - Has been on ISS given concurrent use of corticosteroids - Patient has refused insulin; and is indicated that it will "kill her and that's the reason her niece lost her leg" - Advised patient that it is only while she is on corticosteroids; she noted that "her body would let her know if she needed insulin' CAD - Hx of Inferior ischemia on nuclear stress test - Currently patient has no complaints of chest pain or palpitations - EKG 12/05: Sinus bradycardia with T-wave abnormalities noted - Troponin x3 negative - Will have outpatient follow-up with Dr. Cabrales HTN - BP well controlled - c/w Lisinopril, Atenolol, DLP - c/w [place] 3 fatty acids, Coenzyme Q10, Atorvastatin Asthma - see above - c/w Montelukast - c/w inhaled therapy as ordered GI bleed 2/2 PUD - Hg appears to be higher than baseline - Will continue to monitor - c/w Protonix Gout - c/w Allopurinol Depression - c/w Fluoxetine Neuropathy - c/w Gabapentin Patient education - Patient is of poor understanding of her medical conditions - Reiterated to patient the need for medications and compliance - Currently patient want to educate staff about medications - She has been advised to follow up with her PCP and Dr. Cabrales DVT prophylaxis - c/w Heparin DISCHARGE MEDICATIONS: Please see below. ALLERGIES: Please see below. PHYSICAL EXAMINATION ON DISCHARGE: Vitals (See below) General: Lying in bed, no acute distress, comfortable, AAOx3 HEENT: NC, AT CVS: RRR, +S1S2 Lungs: Fair air entry b/l, crackles on lung bases without any evidence of wheezing or rhonchi Abdomen: Soft, ND, NT Extremities: - Edema, - Calf tenderness LABORATORY DATA: Please see below. ACTIVITY: [As tolerated]. DISCHARGE PLAN: Follow-up with Dr. Garíca and Dr. Cabrales within 7 days Remain compliant with treatment plan and medications Return to the ER if you experience any problems DISPOSITION: Home Against Medical Advice DISCHARGE CONDITION: [Stable]. TIME SPENT ON DISCHARGE: Greater than [35] minutes. Vital Signs/I&Os Vital Signs Date Time Temp Pulse Resp B/P (MAP) Pulse Ox O2 Delivery O2 Flow Rate FiO2 12/07/18 09:27 65 128/60 12/07/18 08:00 97.0 24 94 2.0 12/07/18 06:00 Nasal Cannula I&O- Last 24 Hours up to 6 AM 12/07/18 06:00 Intake Total 2585 ml Output Total 1080 ml Balance 1505 ml Laboratory Data Labs 24H Laboratory Tests 2 12/06/18 16:49: Bedside Glucose (Misc Panel) 169H 12/07/18 04:42: Immature Granulocyte % (Auto) 1.4, White Blood Count 31.6*H, Red Blood Count 4.62, Hemoglobin 12.2, Hematocrit 38.7, Mean Corpuscular Volume 83.8, Mean Corpuscular Hemoglobin 26.4L, Mean Corpuscular Hemoglobin Concent 31.5L, Red Cell Distribution Width 14.9H, Platelet Count 297, Neutrophils (%) (Auto) 86.3H, Lymphocytes (%) (Auto) 7.4L, Monocytes (%) (Auto) 4.7, Eosinophils (%) (Auto) 0.0, Basophils (%) (Auto) 0.2, Neutrophils # (Auto) 27.7H, Lymphocytes # (Auto) 2.4, Monocytes # (Auto) 1.5H, Eosinophils # (Auto) 0.0, Basophils # (Auto) 0.1, Immature Granulocyte # (Auto) 0.4H, Nucleated Red Blood Cells % (auto) 0.0, Anion Gap 13, Glomerular Filtration Rate 38.1L, Blood Urea Nitrogen 47#H, Creatinine 1.44H, Sodium Level 133L, Potassium Level 4.4, Chloride Level 103, Carbon Dioxide Level 17L, Calcium Level 8.2L CBC/BMP Laboratory Tests 12/07/18 04:42 Red Blood Count 4.62, Mean Corpuscular Volume 83.8, Mean Corpuscular Hemoglobin 26.4 L, Mean Corpuscular Hemoglobin Concent 31.5 L, Red Cell Distribution Width 14.9 H, Neutrophils (%) (Auto) 86.3 H, Lymphocytes (%) (Auto) 7.4 L, Monocytes (%) (Auto) 4.7, Eosinophils (%) (Auto) 0.0, Basophils (%) (Auto) 0.2, Neutrophils # (Auto) 27.7 H, Lymphocytes # (Auto) 2.4, Monocytes # (Auto) 1.5 H, Eosinophils # (Auto) 0.0, Basophils # (Auto) 0.1, Calcium Level 8.2 L FSBS Laboratory Tests Test 12/06/18 16:49 Range/Units Bedside Glucose (Misc Panel) 169 83-110 MG/DL Microbiology Microbiology 12/05/18 Blood Culture - Preliminary, Resulted No growth after 24 hours . All specim... 12/06/18 Gram Stain - Final, Resulted 12/06/18 Sputum Culture, Resulted Pending 12/05/18 Respiratory Virus Panel (PCR) ([facility]) - Final, Complete Discharge Medications Scheduled Atenolol (Atenolol) 50 Mg Tab, 50 MG PO BID, (Reported) Atorvastatin Calcium (Atorvastatin Calcium) 40 Mg Tab, 40 MG PO QHS, (Reported) Azithromycin (Azithromycin) 250 Mg Tab, 250 MG PO DAILY Cefdinir (Cefdinir) 300 Mg Cap, 300 MG PO BID Coenzyme Q10 (Co Q10) 200 Mg Cap, 400 MG PO BID, (Reported) Fluoxetine Hcl (Fluoxetine) 20 Mg Cap, 20 MG PO BID, (Reported) Fluticasone Propionate (Flovent Hfa) 220 Mcg/Act Aer, 2 PUFFS INH BID, ( Reported) Gabapentin (Gabapentin) 300 Mg Cap, 300 MG PO BID, (Reported) Lisinopril (Lisinopril) 20 Mg Tab, 20 MG PO BID, (Reported) Montelukast Sodium (Singulair) 10 Mg Tab, 10 MG PO QHS, (Reported) [place] 3 Polyunsat Fatty Acids ([place]-3 1000 mg) 1 Cap Cap, 2 CAP PO BID, (Reported) Pantoprazole Sodium Sesquihydr (Protonix) 20 Mg Tab, 20 MG PO BID, (Reported) Prednisone (Prednisone) 10 Mg Tab, 10 MG PO TAPER Take 4 tabs daily x 3 days, then 3 tabs daily x 3 days, then 2 tabs daily x 3 days, then 1 tab daily x 3 days and stop Scheduled PRN Acetaminophen/Hydrocodone ([place] 5-325 mg) 1 Tab Tab, 1 TAB PO QHS PRN for PAIN, (Reported) Albuterol Sulfate (Proair Hfa) 108 Mcg/Act Aer, 2 PUFF INH Q4H PRN for SOB/WHEEZING, (Reported) Albuterol Sulfate (Albuterol Sulfate) 2.5 Mg/3 Ml Nebu, 1 VIAL INH Q4HP PRN for wheezing, (Reported) Allopurinol (Zyloprim) 300 Mg Tab, 300 MG PO QHS PRN for PAIN, (Reported) Furosemide (Furosemide) 20 Mg Tab, 30 MG PO DAILY PRN for SWELLING IN ANKLES, (Reported) Allergies Coded Allergies: Sulfa Antibiotics (Verified Allergy, Severe, n/v, passing out, 12/05/18) Ibuprofen (Verified Allergy, Mild, vomiting, 06/17/18) TEE SCHMITZ MD Dec 07, 2018 13:04
[2018-12-07] MEDS ORDERED: CEFDINIR 300 MG CAP (OMNICEF) PO SCH (21:00)
--- NOTE | 2018-12-07 21:32 | ECHO ---
DATE OF PROCEDURE: 12/06/2018 REFERRING PHYSICIAN: Herminio De Jesus MD INDICATION: Dyspnea. HEIGHT: 158 cm WEIGHT: 98 kg 2D MEASUREMENTS: Ventricular septum: 1.10 cm Posterior wall: 1.12 cm Left ventricle diastole: 4.2 cm Aortic root: 3.3 cm Left atrium: 4.2 cm LVOT: 2.1 cm Inferior vena cava: 2.2 cm with more than 50% respiratory variation. Central venous pressure estimated to be 5-10 mmHg. DOPPLER MEASUREMENTS: Aortic valve velocity: 157 cm/s LVOT velocity: 135 cm/s LVOT VTI: 32.9 cm Mitral E velocity: 83.9 cm/s Mitral A velocity: 95.8 cm/s Mitral deceleration time: 327 ms Very mild tricuspid regurgitation. Pulmonary artery systolic pressure estimated to be 36 mmHg. MITRAL ANNULAR TISSUE DOPPLER: E prime lateral: 7.4 cm/s DESCRIPTION: Rhythm was sinus. This was a moderately technically difficult echocardiogram. No pericardial effusion. This is a 2D, M-mode, color flow Doppler and pulse wave Doppler examination that included mitral annular tissue Doppler. CONCLUSIONS: 1. Normal left ventricle internal dimensions and wall thickness. Normal regional left ventricle (LV) wall motion and wall thickening. Normal LV systolic function. Left ventricular ejection fraction (LVEF) 65% by visual estimate. Grade 1 LV diastolic dysfunction. 2. Mild left atrial dilatation. 3. Suggestive of mild elevation of pulmonary artery systolic pressure. 4. Mild aortic valve sclerosis of a three-cuspid aortic valve. 5. Otherwise normal appearing echocardiogram Doppler findings.
[2018-12-09 00:07] LABS: BODY FLUID CULTURE Not Indicated (.); LEGIONELLA ANTIGEN URINE Negative (Negative); ORGANISM ID Not indicated. (.); SPECIMEN SOURCE Urine (.); URINE STREP PNEUMONIAE ANTIGEN Negative (Negative)
== END 2018-12-07 12:15 | disposition left against medical advice (07) | DRG 189 ==
LOC: M ED 18:42 → M ED INP 22:57 → M PCU 12-06 01:22
PROVIDERS: ADMIT Internal Medicine; ATTEND Internal Medicine
DX: J96.01 Acute respiratory failure with hypoxia (principal); J18.9 Pneumonia, unspecified organism; J45.901 Unspecified asthma with (acute) exacerbation; I50.32 Chronic diastolic (congestive) heart failure; I11.0 Hypertensive heart disease with heart failure; G62.9 Polyneuropathy, unspecified; K27.9 Peptic ulcer, site unspecified, unspecified as acute or chronic, without hemorrhage or perforation; I25.10 Atherosclerotic heart disease of native coronary artery without angina pectoris; M10.9 Gout, unspecified; F32.9 Major depressive disorder, single episode, unspecified; Z91.19 Patient's noncompliance with other medical treatment and regimen; D72.829 Elevated white blood cell count, unspecified; Z79.899 Other long term (current) drug therapy; Z88.6 Allergy status to analgesic agent; R73.03 Prediabetes; E78.5 Hyperlipidemia, unspecified; M79.7 Fibromyalgia